=== PATIENT | male | born 1990 | race Caucasian/White ===

== ENCOUNTER 2023-08-02 20:21 | Emergency (ER) | payer MEDICAID, OTHER ==
[~2023-08-02] VITALS: Ht 167.6 cm; Wt 84.0 kg
[2023-08-02 20:28] VITALS: BP 173/113; PULSE 98; RESP 16; TEMP 98.6; O2SAT 99
== END 2023-08-03 00:40 | disposition left against medical advice (07) ==
LOC: ER 20:21
DX: R04.0 Epistaxis (principal)
CPT/HCPCS: 99281